=== PATIENT | female | born 2000 | race African-American/Black ===

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

== ENCOUNTER 2019-02-05 10:33 | Inpatient (IN) | payer MEDICAID ==
[2019-02-05 11:21] LABS: ADD MAN DIFF? NO
[2019-02-05 11:27] LABS: ABNORMAL IP MESSAGE 1; BASOPHILS % 0.3 % (0.0-2.0); EOSINOPHILS # 0.1 10^3/ul (0.0-0.5); EOSINOPHILS % 1.1 % (0.0-7.0); HEMATOCRIT 34.9 % (37.0-47.0); HEMOGLOBIN 11.6 g/dl (12.0-16.0); MEAN CORPUSCULAR HGB CONC 33.2 g/dl (32.0-37.0); MEAN CORPUSCULAR VOLUME 78.1 fl (72.0-104.0); MONOCYTE # 1.1 10^3/ul (0.3-0.9); MONOCYTES % 10.6 % (0.0-13.0); NEUTROPHIL # 6.8 10^3/ul (1.6-7.5); NEUTROPHILS % 67.7 % (30.0-74.0); PLATELET COUNT 145 10^3/UL (140-415); RED BLOOD COUNT 4.47 10^6/ul (4.20-5.40); RED CELL DISTRIBUTION WIDTH 15.5 % (11.5-14.5)
[2019-02-05 11:27] LABS: WHITE BLOOD COUNT 10.1 10^3/ul (4.8-10.8)
[2019-02-05] MEDS ORDERED: METHYLERGONOVINE 0.2 MG INJ IM (11:30)
[2019-02-05] MEDS: MINERAL OIL LIGHT 10 ML VIAL TOP (11:30)
[2019-02-05] MEDS ORDERED: LIDOCAINE 1% (MPF) 30 ML INJ INJ (11:30)
[2019-02-05] MEDS ORDERED: MISOPROSTOL 200 MCG TAB PR (11:30)
[2019-02-05] MEDS ORDERED: CARBOPROST 250 MCG INJ IM (11:30)
[2019-02-05] MEDS ORDERED: OXYTOCIN 30 UNITS/LR 500 ML IV (11:30)
[2019-02-05] MEDS ORDERED: IBUPROFEN 600 MG TAB PO (11:30)
[2019-02-05 11:32] LABS: POSITIVE DIFF @See below
[2019-02-05 11:52] LABS: INR 0.92; PROTIME 12.5 Sec (11.9-14.9)
[2019-02-05 11:53] LABS: PARTIAL THROMBOPLASTIN TIME 25.2 Sec (23.0-35.0)
[2019-02-05] MEDS: LACTATED RINGER'S 1,000 ML IV ×3 (12:04→22:48)
[2019-02-05] MEDS: AMPICILLIN 2 GM/NS (PMX) 100 ML IV (12:08)
[2019-02-05] MEDS: OXYTOCIN 30 UNITS/LR 500 ML IV (12:35)
[2019-02-05 12:55] LABS: HEPATITIS B SURFACE ANTIGEN NEGATIVE (NEGATIVE)
[2019-02-05] MEDS ORDERED: AMPICILLIN 1 GM/NS (PMX) 50 ML IV ×2 (15:30→19:30)
[2019-02-05 20:41] LABS: RAPID PLASMA REAGIN NONREACTIVE (NR)
[2019-02-05] MEDS: BUTORPHANOL 2 MG INJ IV (20:41)
[2019-02-05] MEDS ORDERED: ROPIVACAINE 0.2% 100 ML (22:14)
[2019-02-05] MEDS ORDERED: ONDANSETRON 4 MG INJ IV (22:30)
[2019-02-05] MEDS ORDERED: DIPHENHYDRAMINE 50 MG INJ IV (22:30)
[2019-02-05] MEDS ORDERED: NALOXONE (0.4 MG/ML) INJ IV (22:30)
[2019-02-05] MEDS ORDERED: ROPIVACAINE 0.2% 100ML BAG EPI (22:30)
[2019-02-06] MEDS: OXYTOCIN 30 UNITS/LR 500 ML IV ×2 (01:20)
[2019-02-06] MEDS ORDERED: LACTATED RINGER'S 1,000 ML IV* (01:20)
[2019-02-06] MEDS ORDERED: OXYTOCIN 30 UNITS/LR 500 ML IV ×2 (01:20→01:30)
[2019-02-06] MEDS ORDERED: METHYLERGONOVINE 0.2 MG INJ IM (01:30)
[2019-02-06] MEDS ORDERED: CARBOPROST 250 MCG INJ IM (01:30)
[2019-02-06] MEDS ORDERED: MISOPROSTOL 200 MCG TAB PR (01:30)
[2019-02-06] MEDS ORDERED: FENTAnyl 2MCG/ML-ROPIV 0.2% 0 ML (02:09)
[2019-02-06] MEDS: IBUPROFEN 600 MG TAB PO ×3 (05:21→17:59)
[2019-02-06] MEDS: LANOLIN HPA 1 PKT TOP (05:21)
[2019-02-07] MEDS: IBUPROFEN 600 MG TAB PO ×5 (00:20→23:33)
[2019-02-07] MEDS: LANOLIN HPA 1 PKT TOP (07:54)
[2019-02-07] MEDS: HYDROCODONE/APAP (5/325) TAB PO (07:54)
[2019-02-07 09:08] LABS: ADD MAN DIFF? NO
[2019-02-07 09:13] LABS: WHITE BLOOD COUNT 11.5 10^3/ul (4.8-10.8)
[2019-02-07 09:13] LABS: ABNORMAL IP MESSAGE 1; BASOPHIL # 0.1 10^3/ul (0.0-0.1); BASOPHILS % 0.6 % (0.0-2.0); EOSINOPHILS # 0.3 10^3/ul (0.0-0.5); EOSINOPHILS % 2.3 % (0.0-7.0); HEMATOCRIT 36.2 % (37.0-47.0); LYMPHOCYTES # 3.2 10^3/ul (0.8-2.9); LYMPHOCYTES % 27.5 % (18.0-55.0); MEAN CORPUSCULAR HEMOGLOBIN 25.6 pg (29.0-33.0); MEAN CORPUSCULAR HGB CONC 33.1 g/dl (32.0-37.0); MEAN CORPUSCULAR VOLUME 77.4 fl (72.0-104.0); MEAN PLATELET VOLUME 13.1 fl (7.4-10.4); MONOCYTE # 1.2 10^3/ul (0.3-0.9); MONOCYTES % 10.1 % (0.0-13.0); NEUTROPHIL # 6.8 10^3/ul (1.6-7.5); PLATELET COUNT 156 10^3/UL (140-415); RED BLOOD COUNT 4.68 10^6/ul (4.20-5.40)
[2019-02-07 09:14] LABS: POSITIVE DIFF @See below
[2019-02-08] MEDS: IBUPROFEN 600 MG TAB PO (05:42)
[2019-02-08] MEDS: DIPHTH/TET/ACEL PERTUSS (ADULT) 0.5 ML VIAL IM* (10:06)
== END 2019-02-08 12:34 | disposition home or self-care (01) | DRG 807 ==
LOC: L-D 10:33 → PP1 02-06 03:44
PROVIDERS: Obstetrics & Gynecology
PROC: 10E0XZZ Delivery of Products of Conception, External Approach (ICD-10-PCS; principal; 2019-02-06)
DX: O80 Encounter for full-term uncomplicated delivery (principal); Z37.0 Single live birth; Z3A.39 39 weeks gestation of pregnancy
CPT/HCPCS: 62322; 76815; 85025; 85610; 85730; 86592; 86850; 86900; 86901; 87340; 90715